=== PATIENT | male | born 1950 | race Caucasian/White ===

== ENCOUNTER 2019-11-14 13:12 | Outpatient (CLI) | payer MEDICARE, OTHER, SELFPAY ==
--- NOTE | 2019-11-14 13:23 | XR_ITS ---
WS: [id number] SHOULDER RIGHT TECHNIQUE: 3 views of the right shoulder CLINICAL INFORMATION: BURSITIS OF RIGHT SHOULDER COMPARISON: None. FINDINGS: Normal acromioclavicular joint. Normal glenohumeral joint. Acromion is normal in appearance. Normal g lenoid. No evidence of acute fracture dislocation. Mild rotator cuff arthropathy XR/XR shoulder RT min 2V* [id number] IMPRESSION: Mild rotator cuff arthropathy.
--- NOTE | 2019-11-14 13:23 | XR_ITS ---
WS: [id number] SHOULDER LEFT TECHNIQUE: 3 views of the left shoulder CLINICAL INFORMATION: BURSITIS OF LEFT SHOULDER COMPARISON: None. FINDINGS: Normal acromioclavicular joint. Normal glenohumeral joint. Acromion is normal in appearance. Normal g lenoid. No evidence of acute fracture dislocation. Mild rotator cuff arthropathy. Chronic left latera l rib fractures with callus formation. XR/XR shoulder LT min 2V* [id number] IMPRESSION: 1. Mild rotator cuff arthropathy. 2. Chronic left lateral rib fractures with callus formation
== END 2019-11-14 13:13 | disposition home or self-care (01) ==
PROVIDERS: Family Provider Nurse Practitioner; PCP Nurse Practitioner; Visit Provider Nurse Practitioner
DX: M75.52 Bursitis of left shoulder (principal); M75.51 Bursitis of right shoulder; M12.811 Other specific arthropathies, not elsewhere classified, right shoulder; M84.48XG Pathological fracture, other site, subsequent encounter for fracture with delayed healing
CPT/HCPCS: 73030

== ENCOUNTER 2019-11-19 15:19 | Outpatient (CLI) | payer MEDICARE, OTHER, SELFPAY ==
--- NOTE | 2019-11-19 15:42 | MR_ITS ---
WS: [id number] MRI RIGHT SHOULDER NONCONTRAST TECHNIQUE: Sagittal T2, coronal T1, T2 and proton density imaging. Axial gradient PDE imaging. CLINICAL INFORMATION: BURSITIS RT SHOULDER COMPARISON: None. FINDINGS: Moderate degenerative arthritis at the AC joint with edema. Small amount of fluid in subacromial/subd eltoid bursa. Downsloping of the acromion with loss of the subacromial space. Tendinopathy supraspina tus. Partial high-grade intrasubstance tear involving the supraspinatus just distal to the musculoten dinous junction. No tendon retraction. Chronic thinning of the supraspinatus distally. Edema within t he supraspinatus and infraspinatus muscle bellies likely inflammatory. Chronic thinning of the infraspinatus with tendinopathy. Chronic appearing intrasubstance tear involv ing the musculotendinous junction. Some intact distal fibers are visualized. No retraction. Teres minor is intact. Normal subscapularis. Normal biceps tendon in the bicipital groove. Glenoid la grayson appears grossly intact. MR/MR shoulder RT wo con* [id number] IMPRESSION: 1. Moderate degenerative arthritis at the AC joint with significant loss of th e subacromial space. Trace subacromial/subdeltoid fluid. 2. High-grade partial tear involving the supraspinatus at the musculotendinous junction with chronic thinning. Chronic thinning of the supraspinatus tendon d istally. No retraction. 3. Chronic intrasubstance tearing with chronic thinning infraspinatus tendon d istally. Intact fibers are seen distally. 4. Normal teres minor and subscapularis. 5. Normal biceps tendon in the bicipital groove.
--- NOTE | 2019-11-19 15:42 | MR_ITS ---
WS: [id number] MRI LEFT SHOULDER NONCONTRAST TECHNIQUE: Sagittal T2, coronal T1, T2 and proton density imaging. Axial gradient PDE imaging. CLINICAL INFORMATION: BURSITIS LEFT SHOULDER COMPARISON: None. FINDINGS: Moderate degenerative arthritis at the AC joint with small amount of edema. Mild downsloping of the a cromion. Slight undersurface acromial spurring. Tendinopathy in the distal supraspinatus. Small intra substance tear at the supraspinatus insertion. Small amount of fluid in subacromial/subdeltoid bursa. Normal infraspinatus. Subscapularis is normal in appearance with normal distal tendon. Normal biceps tendon in the bicipital groove. Degenerative fraying of the glenoid labrum. Tiny SLAP t ear involving the anterior superior glenoid labrum. Labrum otherwise appears intact. Normal biceps la bral anchor. MR/MR shoulder LT wo con* [id number] IMPRESSION: 1. Moderate degenerative arthritis AC joint with a small amount of edema and m ild downsloping of the acromion. Small amount of fluid in the subacromial/subde ltoid bursa consistent with bursitis. 2. Tiny amount of tendinopathy involving the distal supraspinatus with a tiny insertional tear. 3. Rotator cuff is otherwise intact. 4. Normal biceps tendon in the bicipital groove. 5. Suggestion of tiny SLAP tear involving the anterior superior glenoid labrum .
== END 2019-11-19 15:20 | disposition home or self-care (01) ==
LOC: RADSHAW 15:28
PROVIDERS: Family Provider Nurse Practitioner; PCP Nurse Practitioner; Visit Provider Nurse Practitioner
DX: M75.51 Bursitis of right shoulder (principal); M75.52 Bursitis of left shoulder; M19.012 Primary osteoarthritis, left shoulder; M19.011 Primary osteoarthritis, right shoulder
CPT/HCPCS: 73221

== ENCOUNTER 2022-02-09 17:16 | Inpatient (IN) | payer MEDICARE, OTHER, SELFPAY ==
[2022-02-09] VITALS (9 sets, daily range): BP systolic 108–192; BP diastolic 63–94; PULSE 47–100; RESP 15–18; TEMP 36.4–36.9; O2SAT 95–98; BMI 23.0; BMI 23.4
--- NOTE | 2022-02-09 17:32 | ED_ITS ---
HPI - General Adult General: Chief complaint: General Medical Stated complaint: Chest Pain, arm numbness Time Seen by Provider: 02/09/22 17:32 History of Present Illness: Mr Perdomo is a 71-year-old gentleman without chronic medical conditions who presents to the emergency department due to abnormal heart racing episodes and abnormal sensation. He reports a history of similar though had not had 1 in an extended period of time until approximately 2 months ago. He describes episodes that occur at varying times of day and varying circumstances where his heart will race for 30 minutes to an hour. Sometimes these have been associated with a generalized unwell symptom but rarely other specific findings. He has seen a nurse practitioner in [place] and had a heart monitor for 2 weeks as these are becoming more frequent, he did have one episode while wearing this monitor and sent it in for interpretation 2 days ago. He presents today has he had another 1 of these episodes however it was associated with headache, dizzy sensation, asleep or weak sensation in his left leg, a fullness in his left arm and abnormal sensation in his left face. There is no speech disturbance with this or facial droop noted by family. This resolved after 30 minutes or an hour and the pa enrique currently feels at his baseline. Intensity of symptoms when present was moderate to severe. Course has resolved. No other specific changes in health, exacerbating, or alleviating factors identified. He does endorse seeing a box sealing machine operator in [place] approximately 2 years ago for similar episodes though is unclear of exactly the suspected etiology. He denies history of heart disease or lung disease. The only other recent change in health that he noted was flu approximately 6 weeks ago, he was recently started on guaifenesin, doxycycline, and Medrol Dosepak. 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 Transient ischemic attack Surgical History H/O shoulder surgery History of hernia surgery Family History Other No pertinent family history Social History Smoking and tobacco status: never smoked Alcohol intake: current Alcohol intake frequency: holidays/special occasions only Lives independently: Yes Household members: none Marital status: / Physical Exam Const: COMMON NORMALS: patient oriented x3 and alert GENERAL APPEARANCE: cooperative and well developed HENMT: COMMON NORMALS: normocephalic and atraumatic HEAD & SCALP: normoceph alic and atraumatic THROAT: posterior oropharynx normal Eye: COMMON NORMALS: conjunctivae normal CONJUNCTIVA: Yes conjunctivae normal SCLERA: sclerae normal Neck/C-Spine: COMMON NORMALS: supple GENERAL: Yes trachea midline Resp: EFFORT & INSPECTION: Yes able to speak in complete sentences AUSCULTATION: diminished lung sounds Cardio: COMMON NORMALS: regular rhythm RATE: bradycardic RHYTHM: regular rhythm GI: COMMON NORMALS: Soft to palpation PALPATION: Yes Soft to palpation and No Tenderness to palpation present (GI) Extremity: GENERAL: Yes normal exam except as noted and No edema Neuro: COMMON NORMALS: patient oriented x3, CN's II-XII intact bilaterally, moves all extremities, no focal motor deficits and no sensory deficits noted SENSORIUM/ORIENTATION: Yes alert and No Orientation impaired Psych: COMMON NORMALS: mental status grossly normal and Normal thought process present THOUGHT PROCESS: Normal thought process present Course ED course: - Patient was seen and evaluated by me at bedside - Patient placed on cardiac monitors, IV access obtained - Initial evaluation notable for exam as above - Labs and xrays personally interpreted by me. EKG from 1728 and 2000 interpreted by me. Sinus bradycardia with first-degree AV block. - Labs notable for no leukocytosis, normal hemoglobin. No acute metabolic derangement to explain symptoms, BNP minimally elevated though unclear baseline. Delta troponin negative. - Imaging notable for no lobar consolidation or pneumothorax. CT head without acute pathology to explain symptoms. - Upon serial reexamination after treatment the patient was similar - Based on patient history, evaluation, and testing as interpreted the most likely cause of the patient's condition is abnormal neurologic and cardiac event of uncertain etiology. ?Transient arrhythmia such as atrial fibrillation, ?Sick sinus rhythm, ?TIA (less likely) - The results of ED evaluation were discussed with the patient including plan for admission due to requirement for level of care not available if discharged to prevent significant worsening/deterioration. - Admitting service was contacted and Dr Bhatt with the hospitalist service agreed to admit the patient - Patient was admitted without further deterioration or significant events. Note: Click bubbles or prepopulated mcgill in note writing are used for assistance with data collection and billing and are inherently more limited than narrative and other text portions of this note. Please use narrative for additional c linical history and defer to narrative/free test for any case of contradictory information. If information appears in only free text or click bubble it should be considered present or absent as reported. Please contact note physician underwriter for clarifications of clinical information or contradictory information. MDM is a brief summary, contradictory or erroneous seeming information should be clarified and full note should be reviewed. Vital Signs: Vital signs: Vital Signs Temperature 98.2 F 02/11/22 11:41 Pulse Rate 56 L 02/11/22 11:41 Respiratory Rate 18 02/11/22 11:41 Blood Pressure 124/70 02/11/22 11:41 Pulse Oximetry 96 02/11/22 11:41 MDM - General Adult Medical Decision Making 71 yo gentleman without significant past medical history with the exception of transient episodes of racing heart which have become more frequent over the past few weeks. There are associated left-sided neurologic symptoms however on exam these have resolved, NIHSS 0. No clear etiology identified on ED evaluation. Admitted for further evaluation and management. Medical Records I reviewed the patient's medical records. Lab Data I reviewed the patient's lab results. : 02/11/22 04:02 02/11/22 04:02 Radiology Impressions Chest X-Ray 02/09/22 17:52 IMPRESSION: No acute cardiopulmonary abnormality. Head CT 02/09/22 17:52 IMPRESSION: No acute intracranial abnormality. Mild sinusitis. Laboratory Results WBC 10.4 10^3/uL (4.0-10.0) H 02/10/22 03:11 RBC 5.26 10^6/uL (4.1-5.3) 02/10/22 03:11 Hgb 15.0 g/dL (11.7-16.6) 02/10/22 03:11 Hct 47.6 % (42.0-52.0) 02/10/22 03:11 MCV 90.5 fl (80-94) 02/10/22 03:11 MCH 28.5 pg (28.0-34.0) 02/10/22 03:11 MCHC 31.5 g/dL (30.0-36.0) 02/10/22 03:11 RDW 13.9 % (12.1-15.1) 02/10/22 03:11 Plt Count 160 10^3/cmm (130-400) 02/10/22 03:11 MPV 11.4 fL (7.4-10.4) H 02/10/22 03:11 Neut % (Auto) 63.5 % 02/10/22 03:11 Lymph % (Auto) 23.9 % 02/10/22 03:11 Boyd % (Auto) 10.1 % 02/10/22 03:11 Eos % (Auto) 1.6 % 02/10/22 03:11 Baso % (Auto) 0.5 % 02/10/22 03:11 Neut # (Auto) 6.63 10^3/uL (1.8-7.7) 02/10/22 03:11 Lymph # (Auto) 2.5 10^3/uL (0.8-4.8) 02/10/22 03:11 Boyd # (Auto) 1.1 10^3/uL (0.2-0.9) H 02/10/22 03:11 Eos # (Auto) 0.2 10^3/uL (0.0-0.8) 02/10/22 03:11 Baso # (Auto) 0.1 10^3/uL (0.0-0.1) 02/10/22 03:11 Nucleated RBC % (auto) 0 % 02/10/22 03:11 Nucleated RBCs # 0.0 /100WBC 02/10/22 03:11 Sodium 140 mmol/L (136-145) 02/10/22 03:11 Potassium 4.1 mmol/L (3.5-5.1) 02/10/22 03:11 Chloride 108 mmol/L (98-107) H 02/10/22 03:11 Carbon Dioxide 21 mmol/L (22-29) L 02/10/22 03:11 Anion Gap 15.1 (5-19) 02/10/22 03:11 BUN 20 mg/dL (8-23) 02/10/22 03:11 Creatinine 1.0 mg/dL (0.7-1.2) 02/10/22 03:11 GFR Calculation Not Reportable 02/10/22 03:11 Glucose 103 mg/dL (65-115) 02/10/22 03:11 Estimat Average Glucose 117 02/09/22 18:00 Hemoglobin A1c 5.7 % (4.0-6.0) 02/09/22 18:00 Calculated Osmolality 293 mOsm/kg (285-295) 02/10/22 03:11 Calcium 9.7 mg/dL (8.5-10.5) 02/10/22 03:11 Magnesium 1.8 mg/dL (1.7-2.3) 02/09/22 18:00 Total Bilirubin 0.5 mg/dL (0.15-1.2) 02/09/22 18:00 AST 17 U/L (0-40) 02/09/22 18:00 ALT 11 U/L (0-41) 02/09/22 18:00 Alkaline Phosphatase 50 IU/L (40-130) 02/09/22 18:00 Troponin T Baseline 6 ng/L (0-15) 02/09/22 18:00 Troponin T 120 Minute 7.41 ng/L (0-15) 02/09/22 20:00 Delta Troponin T 1.41 ABS# (0-10) 02/09/22 20:00 Troponin T Hi Sens 6Hr 7.85 ng/L (0-15) 02/09/22 23:45 Troponin T Hi Sens 6Hr Delta 1.85 ng/L (0-12) 02/09/22 23:45 NT-Pro-B Natriuret Pep 466 pg/mL (0-125) H 02/09/22 18:00 Total Protein 7.5 g/dL (6.6-8.7) 02/09/22 18:00 Albumin 4.5 g/dL (3.5-5.2) 02/09/22 18:00 Globulin 3.0 g/dL (1.3-4.6) 02/09/22 18:00 Triglycerides 53 mg/dL (0-150) 02/09/22 20:00 Cholesterol 165 mg/dL (0-200) 02/09/22 20:00 LDL Cholesterol, Calc 108 mg/dL (50-129) 02/09/22 20:00 HDL Cholesterol 46 mg/dL (60-100) L 02/09/22 20:00 LDL/HDL Ratio 2.35 RATIO (0.00-3.22) 02/09/22 20:00 Cholesterol/HDL Ratio 3.59 mg/dL (1.0-5.00) 02/09/22 20:00 TSH 0.47 uIU/mL (0.27-4.20) 02/09/22 18:00 Urine Color Yellow (Yellow) 02/09/22 19:16 Urine Appearance Clear (CLEAR) 02/09/22 19:16 Urine pH 8 (5-7) H 02/09/22 19:16 Ur Specific Wheatley 1.010 (1.005-1.030) 02/09/22 19:16 Urine Protein Neg (Negative) 02/09/22 19:16 Urine Glucose (UA) Norm (Normal) 02/09/22 19:16 Urine Ketones Negative (Negative) 02/09/22 19:16 Urine Blood Neg (Negative) 02/09/22 19:16 Urine Nitrate Negative (Negative) 02/09/22 19:16 Urine Bilirubin Neg (Negative) 02/09/22 19:16 Prot Sulfosalicylic Acd Negative (Negative) 02/09/22 19:16 Urine Urobilinogen Neg mg/dL (Negative) 02/09/22 19:16 Ur Leukocyte Esterase Negative (Negative) 02/09/22 19:16 Discharge Plan Discharge Patient Disposition: Placed in Observation Admit Provider: Ra Bhatt Clinical Impression: Arrhythmia, Transient ischemic attack Discharge Diet: Cardiac Discharge Activity: Limit activity as instructed Coding Level of Care Code ED Adjuster And Inspector for Jennifer Chandler
--- NOTE | 2022-02-09 17:52 | CTR_ITS ---
PROCEDURE INFORMATION: Exam: CT Head Without Contrast Exam date and time: 02/09/2022 6:28 PM Age: 71 years old Clinical indication: Patient HX: L sided weakness and dizziness; Additional info: Dizzy, left sided sensory changes TECHNIQUE: Imaging protocol: Computed tomography of the head without contrast. Radiation optimization: All CT scans at this facility use at least one of these dose optimization techniques: automated exposure control; mA and/or kV adjustment per patient size (includes targeted exams where dose is matched to clinical indication); or iterative reconstruction. COMPARISON: US Soft Tissue Head Neck [id number] 02/13/2019 3:42 PM RADIATION DOSE METRICS: Total DLP (mGy-cm): 959.25 FINDINGS: Brain: No hemorrhage or evidence of acute infarction. No mass effect. Cerebral ventricles: No ventriculomegaly. Paranasal sinuses: Mild bilateral ethmoid and sphenoid sinusitis is appreciated Mastoid air cells: Visualized mastoid air cells are well aerated. Bones/joints: Unremarkable. No acute fracture. Soft tissues: Unremarkable. CT/CT head wo con* [id number] IMPRESSION: No acute intracranial abnormality. Mild sinusitis.
--- NOTE | 2022-02-09 17:52 | XRR_ITS ---
PROCEDURE INFORMATION: Exam: XR Chest Exam date and time: 02/09/2022 6:07 PM Age: 71 years old Clinical indication: Chest wall pain; Additional info: Palpitations TECHNIQUE: Imaging protocol: XR of the chest. Views: 1 view. COMPARISON: CR Chest 2 views* [id number] 05/30/2018 8:46 AM FINDINGS: Lungs: Mild scarring is again seen in the right upper lobe. The lungs are otherwise clear. Pleural spaces: No pneumothorax or pleural effusion. A small calcified pleural plaque is again seen atop the right hemidiaphragm. Heart/Mediastinum: Unremarkable. No cardiomegaly. Bones/joints: Multiple old left rib fractures are noted. Right shoulder arthroplasty is also appreciated. No acute fracture is seen. XR/XR chest 1V portable [id number] IMPRESSION: No acute cardiopulmonary abnormality.
[2022-02-09 18:12] LABS: Basophils % 0.1 %; Hematocrit 45.9 % (42.0-52.0); Hemoglobin 15.2 g/dL (11.7-16.6); Lymphocytes # 0.9 10^3/uL (0.8-4.8); Lymphocytes % 12.3 %; Mean Corpuscular HGB Conc 33.1 g/dL (30.0-36.0); Mean Corpuscular Hemoglobin 29.3 pg (28.0-34.0); Mean Corpuscular Volume 88.4 fl (80-94); Mean Platelet Volume 10.6 fL (7.4-10.4); Monocytes # 0.2 10^3/uL (0.2-0.9); Monocytes % 3.2 %; Neutrophils # 5.81 10^3/uL (1.8-7.7); Neutrophils % 84.3 %; Nucleated Red Blood Cells % 0 %; Platelet Count 184 10^3/cmm (130-400); Red Blood Count 5.19 10^6/uL (4.1-5.3); Red Cell Distribution Width 13.6 % (12.1-15.1); White Blood Count 6.9 10^3/uL (4.0-10.0)
[2022-02-09 18:36] LABS: Troponin(5th) Baseline 6 ng/L (0-15)
[2022-02-09 18:39] LABS: Alanine Aminotransferase 11 U/L (0-41); Albumin Level 4.5 g/dL (3.5-5.2); Alkaline Phosphatase 50 IU/L (40-130); Anion Gap 16.1 (5-19); Aspartate Amino Transferase 17 U/L (0-40); Blood Urea Nitrogen 20 mg/dL (8-23); Calcium 9.6 mg/dL (8.5-10.5); Carbon Dioxide 23 mmol/L (22-29); Chloride 103 mmol/L (98-107); Glucose 143 mg/dL (65-115); Magnesium 1.8 mg/dL (1.7-2.3); Osmolality Calculated 291 mOsm/kg (285-295); Potassium 4.1 mmol/L (3.5-5.1); Sodium 138 mmol/L (136-145); Total Bilirubin 0.5 mg/dL (0.15-1.2); Total Protein 7.5 g/dL (6.6-8.7)
[2022-02-09 18:43] LABS: NT Pro B Type Natriuretic Pept 466 pg/mL (0-125); Thyroid Stimulating Hormone 0.47 uIU/mL (0.27-4.20)
[2022-02-09 19:20] LABS: Add Urine Microscopic? NO; Charge for UA Resulting for Rev
[2022-02-09 19:23] LABS: Bilirubin Urine Neg (Negative); Blood Urine Neg (Negative); Glucose Urine UA Norm (Normal); Ketones Urine Negative (Negative); Leukocyte Esterase Urine Negative (Negative); Nitrate Urine Negative (Negative); Protein Urine Neg (Negative); Sulfosalicylic Acid Urine Negative (Negative); Urine Appearance Clear (CLEAR); Urine Color Yellow (Yellow); Urobilinogen Urine Neg (Negative); pH Urine 8 (5-7)
--- NOTE | 2022-02-09 19:53 | ECG_ITS ---
[facility] Test Date: 2022-02-09 Pat Name: Mic Perdomo Department: Room: Gender: Male [employer] Service Attendant: : 1950 Requested By: Renny Wild Order Number: [id number] Lilia MD: Shaye Dixon M.D. Measurements Intervals [place] Rate: 44 P: 57 [place]: 240 QRS: 44 QRSD: 101 T: 52 QT: 458 QTc: 394 Interpretive Statements SINUS BRADYCARDIA WITH FIRST DEGREE AV BLOCK Compared to ECG 10/22/2017 09:08:13 No significant changes Electronically Signed On 02-10-2022 11:17:15 CDT by Shaye Dixon M.D. [id number]
[2022-02-09 20:29] LABS: Troponin 5 2HR 7.41 ng/L (0-15)
[2022-02-09 20:30] LABS: Troponin 5 2HR Delta 1.41 ABS# (0-10)
--- NOTE | 2022-02-09 21:56 | P.HP_ITS ---
Providers/Chief Complaint Admitting Physician: Ra Bhatt Primary Care Provider: Yesi Altamirano APN Chief Complaint: Chest Pain, arm numbness History of Present Illness Pleasant 71-year-old gentleman with history of occasional racing heart rate/palpitations, reports previously was described to him during an ER visit by a doctor that he may have had very slow heart rate with compensatory tachycardia, recently also about 4 weeks ago had influenza, subsequently has not recovered very well, and had gone back to his primary provider, recently prescribed doxycycline, Medrol Dosepak, mephenesin due to some ongoing symptoms, recently with sore throat as well as some chest congestion. Just on Sunday he had also completed 2 weeks cardiac monitoring due to episode of tachycardia. He states that he had one episode that had woken him up from sleep around midnight which should have been caught on the monitor. He does state that since Sunday he has had 2 more episodes of the tachycardia since returning the cardiac cath lab radiology technologist. The monitor was through his primary provider's office. He presented to ER following neurological symptoms. He states around this afternoon not long before his presentation he started he had experienced his heart racing, similarly to the prior episodes, but this time what was new is he was experiencing vertigo, with everything spinning around him to one side horizontally. He states that he had got up to put a log in the furnace, but felt persistent vertigo, so went to bed to lie down. There he also experienced mild headache on the left side of his head. Subsequently also experienced numbness in the left leg, also felt that left side of his face felt heavy, and to ER physician also reported some heaviness of the left arm. He had previously had episodes of tachycardia/palpitation before, but never associated with strokelike symptoms. He denies any history of migraine or hemiplegic migraine. By the time he arrived in ER all the symptoms had resolved. CT of the head without acute abnormality. He is noted with resting bradycardia in the high 40s. Maintaining blood pressures. Orthostatics negative. EKG with sinus bradycardia, first-degree AV block. Baseline and 2-hour troponin normal. CBC, CMP unremarkable apart from elevation of NT proBNP at 466. TSH normal. UA unremarkable. Review of Systems Const: Denies: fever(s), chills, body aches or malaise Eyes: Denies: change in vision, eye discomfort or eye redness ENMT: Denies: throat pain, oral sores or ear or mastoid pain Card: Denies: chest pain, edema, pre-syncope or dyspnea on exertion Resp: Denies: dyspnea, productive cough, change in phlegm color or hemoptysis GI: Denies: abdominal pain, nausea, vomiting, diarrhea, constipation, he matochezia or melena : Denies: flank pain, difficulty urinating, urinary frequency or hematuria Musc: Denies: back pain, joint swelling or joint redness Skin/Breast: Denies: rash or new lesions Neuro: Reports: headache(s), numbness in extremities, weakness in extremities and vertigo; Denies: confusion or seizure-like activity Endo: Denies: polyuria or polydipsia Jaden/Lymph: Denies: easy bleeding or tender lymph nodes All/Imm: Denies: urticaria or tongue swelling Medications/Allergies Home Medications Medication Instructions Recorded Confirmed Last Taken Type doxycycline hyclate 100 mg capsule 100 mg PO DAILY 02/09/22 02/09/22 02/09/22 History guaifenesin 600 mg tablet, 600 mg PO BID 02/09/22 02/09/22 02/09/22 History extended release 12 hr (Mucinex) methylprednisolone 4 mg tablets in 0 mg PO PER PKG DIR 02/09/22 02/09/22 02/09/22 History a dose pack (Medrol (Prince)) wgcjukahheam-bvqjajld-nkjhf acid 1 cap PO DAILY 02/09/22 02/09/22 02/09/22 History 400 mcg-vitamin K 40 mcg capsule (Multi For Him (no iron)) Allergies Allergy/AdvReac Type Severity Reaction Status Date / Time No Known Allergies Allergy Verified 02/09/22 18:17 PFSH Acute PFSH: Medical History Bradycardia Influenza Paroxysmal tachycardia 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 Surgical History H/O shoulder surgery History of hernia surgery Family History (Updated 02/09/22 @ 22:29 by Ra Bhatt MD) Other No pertinent family history Social History (Updated 02/09/22 @ 22:07 by Ra Bhatt MD) Smoking and tobacco status: never smoked Alcohol intake: current Alcohol intake frequency: holidays/special occasions only Substance/Drug Use: never Lives independently: Yes Household members: none Marital status: / Vitals/I&O/Wt Last Vital Signs Temp 97.5 F L 02/09/22 17:25 Pulse 47 L 02/09/22 19:48 Resp 18 02/09/22 19:48 BP 141/69 02/09/22 19:48 Pulse Ox 96 02/09/22 19:48 Weight last 48 hrs Weight 77.111 kg Physical Exam Narrative: Accompanied by 2 sons Const: COMMON NORMALS: alert GENERAL APPEARANCE: cooperative ORIENTATION/CONSCIOUSNESS: Yes awake HENMT: COMMON NORMALS: normocephalic, EAC's normal, Normal external nose present and moist oral mucous membranes HEAD & SCALP: normocephalic NOSE: Normal external nose present EXTERNAL AUDITORY CANAL: EAC's normal Neck/C-Spine: COMMON NORMALS: no meningeal signs Chest: CHEST: Yes Symmetrical chest wall rise Resp: COMMON NORMALS: clear to auscultation bilaterally AUSCULTATION: clear to auscultation bilaterally Cardio: COMMON NORMALS: regular rate, regular rhythm and No murmurs present (Cardio) RATE: regular rate and bradycardic RHYTHM: regular rhythm GI: COMMON NORMALS: Normal to inspection, nondistended, normoactive bowel sounds present, Soft to palpation and non-tender PALPATION: Yes Soft to palpation Extremity: COMMON NORMALS: no pedal edema OTHER: Glove on the right-hand Neuro: COMMON NORMALS: moves all extremities SENSORIUM/ORIENTATION: Yes alert MENINGEAL SIGNS: Yes no meningeal signs COORDINATION/BALANCE: [id number]-[id number] test normal (Sluggish, intention tremor) and etos-xq-qkii test normal SPEECH: speech normal SENSORY EXAM: Yes extremities (Symmetrical) and Normal double simultaneous stimulation for sensation MOTOR EXAM: 5/5 motor strength present throughout, Pronator motor function not present and Other motor observations present (Mild intention tremor) OTHER: Keenly awake alert, following directions well. Tracking without issues. Visual mcgill full to confrontation. Psych: COMMON NORMALS: mental status grossly normal Skin: COMMON NORMALS: no wounds RASHES: no rashes Data : 02/09/22 18:00 02/09/22 18:00 A&P Assessment and plan (1) Transient ischemic attack: With reported numbness, mild weakness/heaviness of LLE, then left-sided facial heaviness subjectively, left upper extremity mild weakness. Symptoms resolved. Discussed with him and his son's number of different possible etiologies. Suspect TIA given resolution of symptoms. CT head was unremarkable. He does have bradycardia, and has had previous episodes of paroxysmal tachycardia. Discussed consideration of possible severe bradycardia as etiology, with hypoperfusion especially if there is carotid disease, will monitor on telemetry, assess carotid duplex. With episodes of proximal tachycardia, discussed also possibility of atrial flutter or fibrillation, elevating risk of stroke if these were present. He had just completed event monitor on Sunday. States one event should have been caught on the monitor. Subsequently has had 2 events since taking of the monitor. States events have been getting more frequent. Monitor on telemetry. Will request records from cardiac event monitor, hopefully the tachycardia may be identified. If not, may need to extend monitor further. He does appear to have also hypertension, without history of hypertension. 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 Monitor blood pressures. For now we will hold off on treatment, but may need to initiate on some treatment to optimize long-term in case persistent hypertension. Check lipid profile. Assess TTE. Blood glucose appears elevated 143 without history of diabetes. Possibly related to steroid. Will check A1c. Aspirin, statin. Less likely, possible hemiplegic migraine, reports headache on the left side associated with the symptoms today. Denies prior history of migraine or hemiplegic migraine. Discussed with him in the future if having focal neurologic symptoms to still proceed to ER [facility] for evaluation for stroke. He appears to also report a wood-burning stove at home, will check ABG for CO. Status: Acute (2) Paroxysmal tachycardia: As above, monitor on telemetry. Please attempt to obtain records from primary provider regarding recently completed event monitor. He states one episode of tachycardia should have been caught on the monitor. It woke him up from sleep at midnight. States since then has had 2 more episodes of tachycardia/palpitations since taking off the monitor on Sunday. In case of possible atrial fibrillation/flutter, may benefit from additional stroke risk reduction measures, consideration of anticoagulation given age, hypertension. In case nondiagnostic, may need to consider extending cardiac monitoring window. Status: Acute (3) Bradycardia: Noted sinus bradycardia, first-degree AV block. Monitor on telemetry. Obtain records from cardiac cath lab radiology technologist. TSH is normal. Electrolytes okay. Not on bailey blockers. Status: Acute (4) Headache: Denies history of migraine, but reports today headache after symptoms on the left side. Tylenol as needed. We will also check ABG. Saturations 94% on room air. Will check for CO as he reports wood-burning stove at home. Please confirm with him that he has a CO detector at home. Status: Acute (5) HTN (hypertension): No prior history of hypertension. Appears may have hypertension, blood pressures noted elevated. This may be transient from distress from his symptoms. For now we will monitor blood pressures. In case persistent elevation, consider starting on therapy for long-term optimization of control. Should monitor blood pressures at home. Status: Acute (6) Bronchitis: States that influenza 4 weeks ago, states that recovered poorly from it, states that followed up with his primary provider, and had been prescribed additional course of Solu-Medrol, doxycycline, Mucinex. Continue. Status: Acute Attestations Medical Necessity Statement*: Place in observation for additional assessment of management of TIA, bradycardia, paroxysmal tachycardia. Coding Level of Care Code Acute Supervisor Cigar Making Machine for Jennifer Fwd Exam Comprehensive Diagnoses Transient ischemic attack G45.9 Paroxysmal tachycardia I47.9 Bradycardia R00.1 Headache R51.9 HTN (hypertension) I10 Bronchitis J40
--- NOTE | 2022-02-09 22:10 | PC.NURSE ---
I reported low pulse 50 to nurse
[2022-02-09 22:25] LABS: Chol HDL Ratio 3.59 mg/dL (1.0-5.00); Cholesterol 165 mg/dL (0-200); HDL Cholesterol 46 mg/dL (60-100); LDL Cholesterol Calculated 108 mg/dL (50-129); LDL HDL Ratio 2.35 RATIO (0.00-3.22); Triglycerides 53 mg/dL (0-150)
[2022-02-09] MEDS: atorvastatin 40 mg Tablet PO (22:25)
[2022-02-09] MEDS: aspirin 325 mg Tablet PO (22:25)
[2022-02-09 23:12] LABS: Estmated Average Glucose 117; Hemoglobin A1C 5.7 % (4.0-6.0)
--- NOTE | 2022-02-09 23:53 | ECG_ITS ---
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 Measurements Intervals [place] Rate: 40 P: 70 MO: 236 QRS: 40 QRSD: 116 T: 52 QT: 467 QTc: 382 Interpretive Statements SINUS BRADYCARDIA WITH FIRST DEGREE AV BLOCK MODERATE INTRAVENTRICULAR CONDUCTION DELAY [110+ ms QRS DURATION] CRITICAL TEST RESULT Compared to ECG 02/09/2022 20:01:47 Intraventricular conduction delay now present Electronically Signed On 02-10-2022 13:56:54 CDT by Jamie Brito M.D. [id number]
--- NOTE | 2022-02-09 23:54 | PC.NURSE ---
i reported low pulse 48 to nurse
[2022-02-10] VITALS (9 sets, daily range): BP systolic 121–159; BP diastolic 63–73; PULSE 40–58; RESP 15–20; TEMP 36.4–36.9; O2SAT 96–100
[2022-02-10 00:16] LABS: Troponin 5 6HR 7.85 ng/L (0-15)
[2022-02-10 00:18] LABS: Troponin 5 6HR Delta 1.85 ng/L (0-12)
--- NOTE | 2022-02-10 01:49 | USCV_ITS ---
Carotid Duplex Mic Perdomo Age: 71 Gender: M : 1950 Exam Date: 02/10/2022 02:34 Ordering Phys: Ra Bhatt MD Technologist: PEREZ [place] [facility] [place]: TIA Risk Factors: Unknown Previous Vascular Surgery: Unknown Right Brachial BP: / Left Brachial BP: / Right Left Velocity (cm/s) Spectral Plaque Velocity (cm/s) Spectral Plaque Syst/Diast Broadening Syst/Diast Broadening 62.80/ 11.00 Prox CCA 63.10 / 13.10 79.40/ 12.10 Mid CCA 60.50 / 13.10 50.70/ 9.90 Distal CCA 63.10 / 10.50 47.20/ 12.00 Prox ICA 60.30 / 16.40 51.20/ 15.30 Mid ICA 59.40 / 11.00 46.50/ 13.30 Distal ICA 45.70 / 11.00 53.20 ECA 74.90 0.64 ICA/CCA 0.96 Antegrade Vertebral Antegrade 17.80/ 3.30 cm/s 35.60/ 5.50 cm/s Tri Subclavian Tri 121.3 53.00 0 FINDINGS Mild to moderate homogeneous plaque at the left bifurcation Minimal plaque at the right bifurcation. Minimal intimal thickening in the common carotid and internal carotid arteries bilaterally. Antegrade flow in the vertebral arteries bilaterally. Normal Doppler flow velocities in the external, vertebral and subclavian arteries bilaterally CONCLUSIONS Mild to moderate homogeneous plaque at the left bifurcation, consistent with less than 50% stenosis Minimal plaque at the right bifurcation. No significant stenosis in the above-mentioned extracranial vessels, based on the current finding Dr Jamie Brito MD [facility] (Electronically Signed) Final Date: 10 February 2022 08:45 S
--- NOTE | 2022-02-10 01:49 | USCV_ITS ---
Transthoracic Echo Mic Perdomo Age: 71 Gender: M : 1950 Exam Date: 02/10/2022 01:58 Ordering Phys: Ra Bhatt MD Technologist: PEREZ [place] [facility] [place]: TIA/Bradycardia BP: / HR: 42 Rhythm: Sinus Technical Quality: Adequate MEASUREMENTS (Male / Female) Normal Values 2D ECHO LV Diastolic Diameter PLAX 4.3 cm 4.2 - 5.9 / 3.9 - 5.3 cm LV Systolic Diameter PLAX 2.7 cm IVS Diastolic Thickness 1.0 cm 0.6 - 1.0 / 0.6 - 0.9 cm IVS Systolic Thickness 2.2 cm LVPW Diastolic Thickness 1.8 cm 0.6 - 1.0 / 0.6 - 0.9 cm LVPW Systolic Thickness 1.9 cm LVOT Diameter 2.4 cm LV Ejection Fraction 2D Teich 69.0 % LV Ejection Fraction MOD 2C 58.2 % LV Ejection Fraction 2C AL 58.5 % LA Diameter 3.0 cm LA Width 3.3 cm LA Height 4.9 cm RA Width 4.3 cm RA Height 5.4 cm Aorta at Sinotubular Diameter 2.6 cm M-MODE Aortic Annulus Diameter 3.0 cm LA Ao Ratio MM 1.3 MV E Point Septal Separation 1.3 cm DOPPLER AV Peak Velocity 114.3 cm/s LVOT Peak Velocity 95.0 cm/s AV Area Cont Eq vti 3.4 cm squared AV Area Cont Eq pk 3.7 cm squared MV Peak Velocity 89.0 cm/s MV Area PHT 3.7 cm squared Mitral E to A Ratio 2.1 MV E' Velocity 49.5 cm/s Mitral E to MV E' Ratio 7.4 Mitral E to LV E' Lateral Ratio 7.0 Mitral E to LV E' Septal Ratio 7.8 TR Peak Velocity 180.6 cm/s TR Peak Gradient 13.0 mmHg TR Mean Velocity 130.7 cm/s TR Mean Gradient 8.6 mmHg TR Velocity Time Integral 63.5 cm Right Atrial Pressure 5.0 mmHg Pulmonary Artery Systolic Pressu 18.0 mmHg PV Peak Velocity 64.0 cm/s RV Acceleration Time 0.1 s RV Ejection Time 0.4 s RV AcT/ET 0.3 FINDINGS Left Ventricle Normal left ventricular size and systolic function, EF 61 %. No regional wall motion abnormalities. Mild left ventricular hypertrophy. No regional wall motion abnormalities. Right Ventricle The right ventricle is normal in size and function. Right Atrium Mildly increased right atrial size. Left Atrium The left atrium is normal in size. Mitral Valve Trace mitral valve regurgitation. Aortic Valve Thickened aortic valve. Trace aortic valve regurgitation. Tricuspid Valve Mild tricuspid valve regurgitation. Pulmonic Valve No gross abnormalities noted Pericardium No pericardial effusion. Aorta Normal ascending aorta dimension. CONCLUSIONS Normal left ventricular size and systolic function, EF 61 %. No regional wall motion abnormalities. Mild left ventricular hypertrophy. No regional wall motion abnormalities. Mildly increased right atrial size. Mild tricuspid valve regurgitation. Thickened aortic valve. Trace aortic valve regurgitation. Trace mitral valve regurgitation. There is no pericardial effusion. There are no intracardiac masses. No previous study is available for comparison. Dr Jamie Brito MD [facility] (Electronically Signed) Final Date: 10 February 2022 08:55 S
[2022-02-10 03:46] LABS: Basophils # 0.1 10^3/uL (0.0-0.1); Basophils % 0.5 %; Eosinophils # 0.2 10^3/uL (0.0-0.8); Eosinophils % 1.6 %; Hematocrit 47.6 % (42.0-52.0); Lymphocytes # 2.5 10^3/uL (0.8-4.8); Lymphocytes % 23.9 %; Mean Corpuscular HGB Conc 31.5 g/dL (30.0-36.0); Mean Corpuscular Hemoglobin 28.5 pg (28.0-34.0); Mean Corpuscular Volume 90.5 fl (80-94); Mean Platelet Volume 11.4 fL (7.4-10.4); Monocytes # 1.1 10^3/uL (0.2-0.9); Monocytes % 10.1 %; Neutrophils # 6.63 10^3/uL (1.8-7.7); Neutrophils % 63.5 %; Nucleated Red Blood Cells % 0 %; Platelet Count 160 10^3/cmm (130-400); Red Blood Count 5.26 10^6/uL (4.1-5.3); Red Cell Distribution Width 13.9 % (12.1-15.1); White Blood Count 10.4 10^3/uL (4.0-10.0)
[2022-02-10 04:09] LABS: Blood Urea Nitrogen 20 mg/dL (8-23); Calcium 9.7 mg/dL (8.5-10.5); Carbon Dioxide 21 mmol/L (22-29); Chloride 108 mmol/L (98-107); Glucose 103 mg/dL (65-115); Osmolality Calculated 293 mOsm/kg (285-295); Sodium 140 mmol/L (136-145)
[2022-02-10 04:11] LABS: Anion Gap 15.1 (5-19); Potassium 4.1 mmol/L (3.5-5.1)
--- NOTE | 2022-02-10 04:20 | PC.NURSE ---
i reported low pulse 40 to nurse
--- NOTE | 2022-02-10 07:40 | ECG_ITS ---
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 Measurements Intervals [place] Rate: 49 P: 27 MT: 227 QRS: 27 QRSD: 89 T: 33 QT: 434 QTc: 395 Interpretive Statements SINUS BRADYCARDIA WITH FIRST DEGREE AV BLOCK Compared to ECG 02/10/2022 02:11:28 Intraventricular conduction delay no longer present Electronically Signed On 02-10-2022 13:57:49 CDT by Jamie Brito M.D. [id number]
[2022-02-10] MEDS: NON-FORMULARY MEDICATION (Methylprednisolone [Medrol (Pak)] 4 mg Tablets,Dose Pack) 1 EACH PO (09:35)
[2022-02-10] MEDS: aspirin 325 mg Tablet PO (09:37)
--- NOTE | 2022-02-10 10:40 | PC.CHAP ---
Pastoral Care Encounter/Spiritual Assessment Type of Contact [] Declined maitre d visit [] Patient/Family/Request visit [] Outpatient visit [] Follow-up visit [] Physician referral [] Code/Alert [x] Routine visit [] Staff referral [] Actively dying [] Patient sleeping [] Family support [] [] Out of room [] Palliative care [] [] Receiving care in room [] Pre-surgical visit [] Trauma [] Long length of stay [] ICU visit [] Other: Relational/Emotional Strength [x] Patient feels connected with others/family/visitors/staff [] Distress [] Loneliness/isolation [] Abandonment Spirituality of Patient [x] Person of Marge [x] Attends Religious of their Marge [x] Believes in Prayer [] Reads Bible or Faith materials [] There are Spiritual issues to be addressed Molding Plasterer Interventions [xx] Prayer [x Active listening [x] Non-anxious presence [x] Spiritual/emotional support [] Crisis/trauma care [] Spiritual counseling [] Bereavement support [] Provided bereavement packet [] Provided Bible/devotional materials [] Provided toy/stuffed animal, coloring book to patient or family member [] Provided Communion [] Anointing/[place] [] Salvation [x] Completed spiritual assessment [] Other: Impact on Illness or Injury [] Angry [] Fearful [] Anxious [] Often cries [] Exhaustion [] Unable to work [] Unable to attend mu-ism [] Unable to walk/stand [] Unable to read [] Unable to drive [] Unable to eat/drink [] Unable to sleep [] Unable to be with family [] Patient intubated [] Other: Summary Time spent with patient 10 min
--- NOTE | 2022-02-10 11:54 | PM.PN ---
Subjective Subjective: Intermittent block noted on EKG, requested Dr. Mcclain to evaluate the patient for sick sinus syndrome Patient is hemodynamically stable, telemetry reviewed, concern for 2-1 block, will follow up with cardiology Vitals/I&O/Wt Last Vital Signs Temp 97.6 F 02/10/22 07:50 Pulse 41 L 02/10/22 07:50 Resp 16 02/10/22 07:50 BP 140/72 02/10/22 07:50 Pulse Ox 97 02/10/22 07:50 02/09/22 02/10/22 02/10/22 22:59 06:59 14:59 Intake Total 120 / 120 120 / 120 Output Total 100 / 100 Balance 20 / 20 120 / 120 Weight last 48 hrs Weight 78.471 kg Weight 77.111 kg Physical Exam Narrative: Patient is hemodynamically stable He was eating breakfast Very pleasant cooperative S1, S2 sinus bradycardia No murmur appreciated Nonfocal neuro exam Abdomen soft Saturating well on room air Euvolemic Patient is keeping his hands in gloves Has right hand ulnar nerve damage Data : 02/10/22 03:11 02/10/22 03:11 A&P Assessment and plan (1) HTN (hypertension): Status: Acute (2) Bradycardia: Status: Acute (3) Paroxysmal tachycardia: Status: Acute Plan Sick sinus syndrome Palpitations, symptomatic Bradycardia Dr. Mcclain consulted Patient is not on AV bailey blocking agent TSH normal Intermittent bundle branch block, concern for 2-1 AV block, telemetry reviewed Magnesium 1.8, potassium 4.1 At the time my evaluation patient was not symptomatic Continue cardiac diet We will keep him n.p.o. after midnight in case he would need any further pacemaker evaluation He is hemodynamically stable Concern for TIA: No active neurological symptoms I do believe his symptoms are related to bradycardia, CT head negative, We will follow up with echo and carotid Doppler Continue aspirin and statins Bronchitis: Continue Medrol pack Patient is full code Attestations Medical Necessity Statement*: Continue hospitalization for concern of sick sinus syndrome Time Spent in Patient Care: 40mins Coding Level of Care Code Acute Electrical Estimator for Chg Fwd Diagnoses HTN (hypertension) I10 Bradycardia R00.1 Paroxysmal tachycardia I47.9
--- NOTE | 2022-02-10 12:55 | PM.CONSULT ---
Providers/Reason For Consult Consulting Physician/Specialty*: Cardiovascular medicine Reason for Consult*: Dizziness and lightheadedness Requesting Physician: hospitalist Attending Physician: Ra Bhatt Primary Care Provider: Yesi Altamirano APN History of Present Illness History of Present Illness Mic Perdomo is a 71 year old male who has been having after he was simply sitting on his couch watching television and looking out the window. He suddenly noticed that things outside that he was watching were moving around. He then got up and felt dizzy and as though the room was spinning. He went to bed. At that point he feels his heart rate going up. He then became very anxious and noticed that his left leg was numb his left arm felt like it was swelling in the left side of his face was numb. He called his son who came and recommended that he come to the emergency room. They called 911 but by the time the first responders arrived the symptoms had completely resolved on their own. He has had multiple episodes like this over the last 5 years. He states that he has had more frequent episodes in the last 6 weeks. Because of this he has had what sounds like an event monitor placed at his primary care physician's office and [place]. This was taken off the other day. We called the office and it is not available for evaluation at this time. He did tell me that he had 1 of these episodes while the monitor was on. Since he has been here he is had sinus bradycardia without any evidence of high degree AV block. The in flight refueling craftsman was concerned that there might be 1 area that showed 2-1 AV block but this is not the case. One strip reveals what looks like a U wave but it is not in sync with the P waves and then there is a significant amount of baseline artifact after this. The other strips reveal sinus rhythm with no block. His heart rate runs in the 40s. His son, Mic Castillo is in the room and participated in the discussion. Medications/Allergies Home Medications Medication Instructions Recorded Confirmed Last Taken Type doxycycline hyclate 100 mg capsule 100 mg PO DAILY 02/09/22 02/09/22 02/09/22 History guaifenesin 600 mg tablet, 600 mg PO BID 02/09/22 02/09/22 02/09/22 History extended release 12 hr (Mucinex) methylprednisolone 4 mg tablets in 0 mg PO PER PKG DIR 02/09/22 02/09/22 02/09/22 History a dose pack (Medrol (Prince)) jeeiwyujzmar-chrogubc-aidas acid 1 cap PO DAILY 02/09/22 02/09/22 02/09/22 History 400 mcg-vitamin K 40 mcg capsule (Multi For Him (no iron)) Allergies Allergy/AdvReac Type Severity Reaction Status Date / Time No Known Allergies Allergy Verified 02/09/22 18:17 Current Medications Generic Name Dose Route Start Last Admin Trade Name Dewey PRN Reason Stop Dose Admin Aspirin 325 mg 02/09/22 22:05 02/10/22 09:37 Aspirin 325 Mg Tablet PO 325 mg DAILY GHASSAN Administration Atorvastatin Calcium 40 mg 02/09/22 22:30 02/09/22 22:25 Atorvastatin 40 Mg Tablet PO 40 mg BEDTIME GHASSAN Administration Non-Formulary Medication 1 tab 02/10/22 06:00 02/10/22 09:35 Methylprednisolone [Medrol (Prince)] PO 1 tab PER PKG DIR GHASSAN Administration Non-Formulary- 1 each 02/10/22 09:00 02/10/22 09:35 Mucinex 1200mg PO 1 each BID GHASSAN Administration Non-Formulary: 1 each 02/10/22 09:00 02/10/22 09:37 Doxycycline 100mg PO 1 each Capsule DAILY GHASSAN Administration PFSH Acute PFSH: Medical History (Updated 02/10/22 @ 13:05 by Daryn Mcclain MD) Bradycardia Dizziness Influenza Paroxysmal tachycardia 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 Surgical History H/O shoulder surgery History of hernia surgery Family History (Updated 02/09/22 @ 22:29 by Ra Bhatt MD) Other No pertinent family history Social History (Updated 02/09/22 @ 22:07 by Ra Bhatt MD) Smoking and tobacco status: never smoked Alcohol intake: current Alcohol intake frequency: holidays/special occasions only Substance/Drug Use: never Lives independently: Yes Household members: none Marital status: / Vitals/I&O/Wt Last Vital Signs Temp 97.6 F 02/10/22 12:00 Pulse 50 L 02/10/22 12:00 Resp 16 02/10/22 12:00 BP 142/70 02/10/22 12:00 Pulse Ox 97 02/10/22 12:00 02/09/22 02/10/22 02/10/22 22:59 06:59 14:59 Intake Total 120 / 120 120 / 120 Output Total 100 / 100 Balance 20 / 20 120 / 120 Weight last 48 hrs Weight 173 lb Weight 170 lb Physical Exam Narrative: GENERAL: In general he looks and feels well HEENT: Exam within normal limits. NECK: Supple without jugular vein distention. The carotid upstroke is normal without bruits. BACK: Exam normal. LUNGS: Clear. HEART: Regular rate and rhythm. ABDOMEN: Benign without organomegaly or tenderness. EXTREMITIES: No edema. NEUROLOGIC: Exam normal. SKIN: Unremarkable. Data : 02/10/22 03:11 02/10/22 03:11 A&P Assessment and plan (1) HTN (hypertension): Status: Acute (2) Dizziness: Status: Acute (3) Vertigo: Status: Acute Plan I honestly do not think this is cardiac. I do not think he has any high degree IV AV block. I will get an echo to be sure he does not have any underlying structural heart disease. These do not sound like cardiac events. I would monitor him 1 more night and if he is okay sending home tomorrow. He seems anxious to get out of the hospital. The alfredo will be to evaluate that outpatient monitor because he said he had one episode while the monitor was on. I think if he is okay tomorrow he can go home and be followed up as an outpatient. Coding Level of Care Code New Pt Acute Geography Professor for Chg Fwd Patient Type New History Detailed Exam Detailed Medical Decision Making Moderate Complexity Diagnoses HTN (hypertension) I10 Dizziness R42 Vertigo R42 Time Spent (min) 40
[2022-02-10] MEDS: acetaminophen 325 mg Tablet 650 MG PO (17:41)
[2022-02-10] MEDS: magnesium oxide 400 mg tablet PO (17:42)
[2022-02-10] MEDS: atorvastatin 40 mg Tablet PO (20:44)
[2022-02-11 04:00] VITALS: BP 121/64; PULSE 46; RESP 20; TEMP 36.3; O2SAT 98
[2022-02-11 05:04] LABS: Basophils % 0.2 %; Eosinophils # 0.2 10^3/uL (0.0-0.8); Eosinophils % 2.2 %; Hematocrit 45.3 % (42.0-52.0); Hemoglobin 14.7 g/dL (11.7-16.6); Lymphocytes # 2.5 10^3/uL (0.8-4.8); Lymphocytes % 25.3 %; Mean Corpuscular HGB Conc 32.5 g/dL (30.0-36.0); Mean Corpuscular Hemoglobin 28.8 pg (28.0-34.0); Mean Corpuscular Volume 88.8 fl (80-94); Mean Platelet Volume 11.3 fL (7.4-10.4); Monocytes # 0.8 10^3/uL (0.2-0.9); Monocytes % 8.5 %; Neutrophils # 6.24 10^3/uL (1.8-7.7); Neutrophils % 63.6 %; Nucleated Red Blood Cells % 0 %; Platelet Count 189 10^3/cmm (130-400); Red Cell Distribution Width 13.8 % (12.1-15.1); White Blood Count 9.8 10^3/uL (4.0-10.0)
[2022-02-11 05:13] VITALS: PULSE 42
[2022-02-11 05:22] LABS: Blood Urea Nitrogen 21 mg/dL (8-23); Calcium 9.2 mg/dL (8.5-10.5); Carbon Dioxide 25 mmol/L (22-29); Chloride 102 mmol/L (98-107); Glucose 93 mg/dL (65-115); Osmolality Calculated 283 mOsm/kg (285-295); Sodium 135 mmol/L (136-145)
[2022-02-11 05:26] LABS: Anion Gap 12.3 (5-19); Potassium 4.3 mmol/L (3.5-5.1)
[2022-02-11 07:08] VITALS: BP 133/65; PULSE 58; RESP 18; TEMP 36.7; O2SAT 97
--- NOTE | 2022-02-11 07:30 | PM.PN ---
Subjective Subjective: Mic has had an uneventful night. He has had no high degree AV block. The lowest heart rate was 39 this morning at about 4:00 while he was sleeping. His average heart rate is around 47 bpm. No symptoms. No further episodes. Vitals/I&O/Wt Last Vital Signs Temp 98.1 F 02/11/22 07:08 Pulse 58 L 02/11/22 07:08 Resp 18 02/11/22 07:08 BP 133/65 02/11/22 07:08 Pulse Ox 97 02/11/22 07:08 02/10/22 02/11/22 02/11/22 22:59 06:59 14:59 Intake Total 600 / 960 60 / 1020 Balance 600 / 960 60 / 1020 Weight last 48 hrs Weight 173 lb Weight 170 lb Physical Exam Narrative: GENERAL: In general he looks and feels well HEENT: Exam within normal limits. NECK: Supple without jugular vein distention. The carotid upstroke is normal without bruits. BACK: Exam normal. LUNGS: Clear. HEART: Regular rate and rhythm. ABDOMEN: Benign without organomegaly or tenderness. EXTREMITIES: No edema. NEUROLOGIC: Exam normal. SKIN: Unremarkable. Data : 02/11/22 04:02 02/11/22 04:02 A&P Assessment and plan (1) Vertigo: Status: Acute (2) Dizziness: Status: Acute (3) HTN (hypertension): Status: Acute (4) Bradycardia: Status: Acute Plan There is no high degree AV block. There are no tacky arrhythmias. I am still not convinced these episodes are cardiac. The critical piece will be the monitor that he had as an outpatient. He tells me that he had one serious episode while the monitor was in place. We will have to try to track that down next week. In the meantime, he can go home. Avoid all AV bailey blockers. Attestations Medical Necessity Statement*: Patient may be discharged today. Coding Level of Care Code Established Pt Acute Customer Service Coordinator for Chg Fwd Patient Type Established History Expanded Problem Focused Exam Expanded Problem Focused Medical Decision Making Moderate Complexity Diagnoses Vertigo R42 Dizziness R42 HTN (hypertension) I10 Bradycardia R00.1 Time Spent (min) 20
--- NOTE | 2022-02-11 07:57 | PC.NURSE ---
Bedside report from Kari RN at this time.
[2022-02-11] MEDS: aspirin 325 mg Tablet PO (08:42)
[2022-02-11] MEDS: magnesium oxide 400 mg tablet PO (08:42)
--- NOTE | 2022-02-11 08:51 | PC.NURSE ---
Patient does not have an order for the Methylprednisolone but is insistent that he must take it because it is a tapering dose. Patient was given it yesterday. Patient given this medication at his request.
--- NOTE | 2022-02-11 09:33 | PC.NURSE ---
Patient is stating, When am I going to get to go home. I have seen the doctor already and he said I could go home. Explained to the patient that he has only seen the ceramic capacitor processor and still needs the hospitalist to discharge him.
--- NOTE | 2022-02-11 11:06 | P.DS_ITS ---
Discharge Providers Date of Admission: 02/10/22 18:35 Date of Discharge: February 11, 2022 Attending Provider at Admission: Ra Bhatt Attending Provider at Discharge: Gayathri Mccloud MD Primary Care Provider: Yesi Altamirano APN Diagnoses at Discharge Discharge Diagnosis (1) Vertigo: Status: Acute (2) Dizziness: Status: Acute (3) HTN (hypertension): Status: Acute (4) Bradycardia: Status: Acute Reason for Visit Reason for Visit: Chest Pain, arm numbness Hospital Course Hospital Course This is admitting note of Dr. Bhatt pleasant 71-year-old gentleman with history of occasional racing heart rate/palpitations, reports previously was described to him during an ER visit by a doctor that he may have had very slow heart rate with compensatory tachycardia, recently also about 4 weeks ago had influenza, subsequently has not recovered very well, and had gone back to his primary provider, recently prescribed doxycycline, Medrol Dosepak, mephenesin due to some ongoing symptoms, recently with sore throat as well as some chest congestion. Just on Sunday he had also completed 2 weeks cardiac monitoring due to episode of tachycardia.? He states that he had one episode that had woken him up from sleep around midnight which should have been caught on the monitor.? He does state that since Sunday he has had 2 more episodes of the tachycardia since returning the door builder.? The monitor was through his primary provider's office. He presented to ER following neurological symptoms.? He states around this afternoon not long before his presentation he started he had experienced his heart racing, similarly to the prior episodes, but this time what was new is he was experiencing vertigo, with everything spinning around him to one side horizontally.? He states that he had got up to put a log in the furnace, but felt persistent vertigo, so went to bed to lie down.? There he also experienced mild headache on the left side of his head.? Subsequently also experienced numbness in the left leg, also felt that left side of his face felt heavy, and to ER physician also reported some heaviness of the left arm.? He had previously had episodes of tachycardia/palpitation before, but never associated with strokelike symptoms. He denies any history of migraine or hemiplegic migraine. By the time he arrived in ER all the symptoms had resolved. CT of the head without acute abnormality. He is noted with resting bradycardia in the high 40s. Maintaining blood pressures.? Orthostatics negative. EKG with sinus bradycardia, first-degree AV block.? Baseline and 2-hour troponin normal. CBC, CMP unremarkable apart from elevation of NT proBNP at 466.? TSH normal.? UA unremarkable. Hospital course Patient was admitted for management evaluation of lightheadedness associated to his palpitation. During hospitalization he was bradycardic. Sinus bradycardia throughout his hospitalization, there was concern for 2-1 AV block however no evidence was found on telemetry or his repeated EKGs. He has sinus bradycardia, first-degree AV block. No QTC prolongation. Intermittent right bundle branch block. He remained hemodynamically stable. Cardiology Dr. Mcclain was consulted who recommended outpatient office follow-up. We are still waiting on report from his PCP regarding his recent Holter monitoring which she finished on Wednesday 02/07. Avoid AV bailey blocking agent. Magnesium to be repleted. No electrolyte imbalance. Patient is not excreting any chest pain, shortness of breath, confusion. He is hemodynamically stable at the time of discharge. Currently see cardiology note for further details. Physical Exam Narrative: GENERAL: In general he looks and feels well HEENT: Exam within normal limits. NECK: Supple without jugular vein distention. The carotid upstroke is normal without bruits. BACK: Exam normal. LUNGS: Clear. HEART: Regular rate and rhythm. ABDOMEN: Benign without organomegaly or tenderness. EXTREMITIES: No edema. NEUROLOGIC: Exam normal. SKIN: Unremarkable. Discharge Data Studies Completed and Pending Completed Studies During Hospitalization Category Date Time Status CT head wo con* [id number] Urgent Cat Scan 02/09/22 17:52 Completed XR chest 1V portable [id number] Urgent Exams 02/09/22 17:52 Completed Pending at discharge Category Date Time Status CV carotid duplex BI* [id number] Routine Ultrasound 02/10/22 01:49 Taken CV. echo complete* [id number] Routine Ultrasound 02/10/22 01:49 Taken Radiology Impressions Chest X-Ray 02/09/22 17:52 IMPRESSION: No acute cardiopulmonary abnormality. Head CT 02/09/22 17:52 IMPRESSION: No acute intracranial abnormality. Mild sinusitis. Laboratory Results WBC 9.8 10^3/uL (4.0-10.0) 02/11/22 04:02 RBC 5.10 10^6/uL (4.1-5.3) 02/11/22 04:02 Hgb 14.7 g/dL (11.7-16.6) 02/11/22 04:02 Hct 45.3 % (42.0-52.0) 02/11/22 04:02 MCV 88.8 fl (80-94) 02/11/22 04:02 MCH 28.8 pg (28.0-34.0) 02/11/22 04:02 MCHC 32.5 g/dL (30.0-36.0) 02/11/22 04:02 RDW 13.8 % (12.1-15.1) 02/11/22 04:02 Plt Count 189 10^3/cmm (130-400) 02/11/22 04:02 MPV 11.3 fL (7.4-10.4) H 02/11/22 04:02 Neut % (Auto) 63.6 % 02/11/22 04:02 Lymph % (Auto) 25.3 % 02/11/22 04:02 [place] % (Auto) 8.5 % 02/11/22 04:02 Eos % (Auto) 2.2 % 02/11/22 04:02 Baso % (Auto) 0.2 % 02/11/22 04:02 Neut # (Auto) 6.24 10^3/uL (1.8-7.7) 02/11/22 04:02 Lymph # (Auto) 2.5 10^3/uL (0.8-4.8) 02/11/22 04:02 [place] # (Auto) 0.8 10^3/uL (0.2-0.9) 02/11/22 04:02 Eos # (Auto) 0.2 10^3/uL (0.0-0.8) 02/11/22 04:02 Baso # (Auto) 0.0 10^3/uL (0.0-0.1) 02/11/22 04:02 Nucleated RBC % (auto) 0 % 02/11/22 04:02 Nucleated RBCs # 0.0 /100WBC 02/11/22 04:02 Sodium 135 mmol/L (136-145) L 02/11/22 04:02 Potassium 4.3 mmol/L (3.5-5.1) 02/11/22 04:02 Chloride 102 mmol/L (98-107) 02/11/22 04:02 Carbon Dioxide 25 mmol/L (22-29) 02/11/22 04:02 Anion Gap 12.3 (5-19) 02/11/22 04:02 BUN 21 mg/dL (8-23) 02/11/22 04:02 Creatinine 0.8 mg/dL (0.7-1.2) 02/11/22 04:02 GFR Calculation Not Reportable 02/11/22 04:02 Glucose 93 mg/dL (65-115) 02/11/22 04:02 Estimat Average Glucose 117 02/09/22 18:00 Hemoglobin A1c 5.7 % (4.0-6.0) 02/09/22 18:00 Calculated Osmolality 283 mOsm/kg (285-295) L 02/11/22 04:02 Calcium 9.2 mg/dL (8.5-10.5) 02/11/22 04:02 Magnesium 1.8 mg/dL (1.7-2.3) 02/09/22 18:00 Total Bilirubin 0.5 mg/dL (0.15-1.2) 02/09/22 18:00 AST 17 U/L (0-40) 02/09/22 18:00 ALT 11 U/L (0-41) 02/09/22 18:00 Alkaline Phosphatase 50 IU/L (40-130) 02/09/22 18:00 Troponin T Baseline 6 ng/L (0-15) 02/09/22 18:00 Troponin T 120 Minute 7.41 ng/L (0-15) 02/09/22 20:00 Delta Troponin T 1.41 ABS# (0-10) 02/09/22 20:00 Troponin T Hi Sens 6Hr 7.85 ng/L (0-15) 02/09/22 23:45 Troponin T Hi Sens 6Hr Delta 1.85 ng/L (0-12) 02/09/22 23:45 NT-Pro-B Natriuret Pep 466 pg/mL (0-125) H 02/09/22 18:00 Total Protein 7.5 g/dL (6.6-8.7) 02/09/22 18:00 Albumin 4.5 g/dL (3.5-5.2) 02/09/22 18:00 Globulin 3.0 g/dL (1.3-4.6) 02/09/22 18:00 Triglycerides 53 mg/dL (0-150) 02/09/22 20:00 Cholesterol 165 mg/dL (0-200) 02/09/22 20:00 LDL Cholesterol, Calc 108 mg/dL (50-129) 02/09/22 20:00 HDL Cholesterol 46 mg/dL (60-100) L 02/09/22 20:00 LDL/HDL Ratio 2.35 RATIO (0.00-3.22) 02/09/22 20:00 Cholesterol/HDL Ratio 3.59 mg/dL (1.0-5.00) 02/09/22 20:00 TSH 0.47 uIU/mL (0.27-4.20) 02/09/22 18:00 Urine Color Yellow (Yellow) 02/09/22 19:16 Urine Appearance Clear (CLEAR) 02/09/22 19:16 Urine pH 8 (5-7) H 02/09/22 19:16 Ur Specific [place] 1.010 (1.005-1.030) 02/09/22 19:16 Urine Protein Neg (Negative) 02/09/22 19:16 Urine Glucose (UA) Norm (Normal) 02/09/22 19:16 Urine Ketones Negative (Negative) 02/09/22 19:16 Urine Blood Neg (Negative) 02/09/22 19:16 Urine Nitrate Negative (Negative) 02/09/22 19:16 Urine Bilirubin Neg (Negative) 02/09/22 19:16 Prot Sulfosalicylic Acd Negative (Negative) 02/09/22 19:16 Urine Urobilinogen Neg mg/dL (Negative) 02/09/22 19:16 Ur Leukocyte Esterase Negative (Negative) 02/09/22 19:16 Vitals Last Vital Signs Temp 98.1 F 02/11/22 07:08 Pulse 58 L 02/11/22 07:08 Resp 18 02/11/22 07:08 BP 133/65 02/11/22 07:08 Pulse Ox 97 02/11/22 07:08 Discharge Plan Discharge Patient Disposition: Home Condition: Stable Prescriptions: New magnesium 200 mg tablet 200 mg PO DAILY Qty: 30 0RF Continued doxycycline hyclate 100 mg capsule 100 mg PO DAILY 0RF Medrol (Prince) 4 mg Tablets,Dose Pack 0 mg PO PER PKG DIR 0RF Mucinex 600 mg Tablet Extended Release 12hr 600 mg PO BID 0RF Multi For Him (no iron) 400-40 mcg Capsule 1 cap PO DAILY 0RF Discharge Orders: Discharge Order (Routine); Ordered 02/11/22 Ordered By: Gayathri Mccloud Referrals: Daryn Mcclain MD [Physician] - 4-7 days (Please call [facility] [place] and schedule an appointment to see Dr. Mcclain within the next 7 days. ) Yesi Altamirano APN [Primary Care Provider] - (Please call Yesi Altamirano's [facility] on Sunday and schedule an appointment to be seen within the next 10 days. ) Discharge Diet: Cardiac Discharge Activity: Limit activity as instructed Patient Instructions: Magnesium Oxide (By mouth), Vertigo (DC), Opioid Safety Discharge Attestations Time Spent in Discharge Care*: less than 30 min Quality Metrics Clinical Quality Measures [ No reported AMI, CVA or VTE this stay] Coding Level of Care Code Acute Chg FW DC note Diagnoses Vertigo R42 Dizziness R42 HTN (hypertension) I10 Bradycardia R00.1
[2022-02-11 11:28] VITALS: BP 124/70; PULSE 56; RESP 18; TEMP 36.8; O2SAT 96
[2022-02-11 11:41] VITALS: BP 124/70; PULSE 56; RESP 18; TEMP 36.8; O2SAT 96
--- NOTE | 2022-02-11 11:45 | PC.NURSE ---
IV reviewed intact at this time. Patient tolerated well. Reviewed patient's discharge with patient at this time. Patient verbalized understanding of the need to make follow up appointments and to start taking Magnesium. Patient is A&Ox3. Respirations even and non-labored on room air. Patient wheel chaired to private car.
== END 2022-02-11 11:35 | disposition home or self-care (01) | DRG 310 ==
LOC: ER 20:34 → MEDSURG 21:39
PROVIDERS: Admitting Provider Internal Medicine; Emergency Provider Emergency Medicine; PCP Nurse Practitioner; Visit Provider Internal Medicine
DX: R00.1 Bradycardia, unspecified (principal); I10 Essential (primary) hypertension; R51.9 Headache, unspecified; J40 Bronchitis, not specified as acute or chronic; R42 Dizziness and giddiness
CPT/HCPCS: 36415; 70450; 71045; 80048; 80053; 80061; 81003; 83036; 83735; 83880; 84443; 84484; 85025; 93005; 93306; 93880; 99285; G0378

== ENCOUNTER → 2022-02-17 10:29 | Outpatient (BNVA) | payer MEDICARE, OTHER, SELFPAY | PROVIDERS: PCP Nurse Practitioner; Visit Provider Internal Medicine Cardiovascular Disease | DX: Z09 Encounter for follow-up examination after completed treatment for conditions other than malignant neoplasm (principal); R42 Dizziness and giddiness; R00.1 Bradycardia, unspecified | CPT/HCPCS: 99212; 99213 ==

== ENCOUNTER 2022-08-05 11:43 | Emergency (ER) | payer MEDICARE, OTHER, SELFPAY ==
[2022-08-05] VITALS (33 sets, daily range): BP systolic 100–123; BP diastolic 58–82; PULSE 66–103; RESP 10–22; TEMP 36.4; O2SAT 82–99; BMI 23.7
--- NOTE | 2022-08-05 12:06 | W.ED.NAVMDI ---
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 Transient ischemic attack Surgical History H/O shoulder surgery History of hernia surgery Family History Other No pertinent family history Social History Smoking and tobacco status: never smoked Alcohol intake: current Alcohol intake frequency: holidays/special occasions only Lives independently: Yes Household members: none Marital status: / Course Vital Signs: Vital signs: Vital Signs Temperature 97.5 F L 08/05/22 11:48 Pulse Rate 103 H 08/05/22 11:48 Respiratory Rate 22 H 08/05/22 11:48 Blood Pressure 100/63 08/05/22 11:48 Pulse Oximetry 98 08/05/22 11:48 Oxygen Delivery Me thod 08/05/22 11:48 Discharge Plan Discharge Condition: Stable Prescriptions: No Action rivaroxaban 20 mg tablet 20 mg PO DAILY Qty: 90 1RF Rx Instructions: must administer with evening meal Mucinex 600 mg Tablet Extended Release 12hr 600 mg PO BID Multi For Him (no iron) 400-40 mcg Capsule 1 cap PO DAILY magnesium 200 mg tablet 200 mg PO DAILY Qty: 30 0RF Referrals: Manuela Lewis NP [Primary Care Provider] - Coding Level of Care Code ED Historical Site Guide for Jennifer Chandler
--- NOTE | 2022-08-05 12:26 | XRR_ITS ---
PROCEDURE INFORMATION: Exam: XR Chest Exam date and time: 08/05/2022 12:43 PM Age: 72 years old Clinical indication: Cough and dyspnea and fever; Patient HX: Sinus congestion for 3-4 days. Nausea/vomiting; Fever, chills, fatigue, body aches headaches; Additional info: Dyspnea/cough TECHNIQUE: Imaging protocol: Radiologic exam of the chest. Views: 1 view. COMPARISON: CR XR chest 1V portable [id number] 02/09/2022 6:07 PM FINDINGS: Lungs: Unremarkable. No consolidation. Pleural spaces: Unremarkable. No pleural effusion. No pneumothorax. Heart/Mediastinum: Unremarkable. No cardiomegaly. Bones/joints: Right shoulder prosthesis projects in satisfactory position. There are multiple old healed left rib fractures. No acute bony abnormality. XR/XR chest 1V portable [id number] IMPRESSION: No acute abnormality.
--- NOTE | 2022-08-05 12:27 | ED_ITS ---
HPI - COVID General: Chief Complaint: Nausea/Vomiting/Diarrhea Stated Complaint: Sick to stomach, weakness, back pain Time Seen by Provider: 08/05/22 12:01 Source: patient Mode of arrival: ambulatory Limitations: no limitations Triage information: Has fever, cough or shortness of breath . History of Present Illness: 72-year-old male presents emergency room with sinus congestion headache myalgias for the last 3 to 4 days. He has had nausea and vomiting with it as well frequent stools no hematochezia melena hematemesis or coffee-ground emesis he has had a slight cough. No anosmia. Not previously had COVID he has been vaccinated. No dysuria urgency or frequency. MD complaint: has COVID symptoms Prior covid testing: no COVID 19 common symptoms: positive fever(s), chills, cough, non-productive cough, dyspnea, fatigue, body aches, headache(s), throat pain, nasal congestion, nausea, vomiting and diarrhea COVID 19 other sytmptoms: negative chest pain or requiring oxygen Onset (ago): day(s) (3) Severity: mild Treatment prior to arrival: none COVID Results: SARS-CoV-2 (PCR) Pending 08/05/22 13:01 Coronavirus Type 229E (PCR) Pending 08/05/22 13:01 Review of Systems Const: Reports: fever(s), chills, body aches and fatigue ENMT: Reports: throat pain and nasal congestion Card: Denies: chest pain, palpitations, irregular heart rhythm, edema, dyspnea on exertion or orthopnea Resp: Reports: dyspnea and non-productive cough GI: Reports: abdominal pain, nausea, vomiting, diarrhea and GI cramping; Denies: bloating or hematochezia : Denies: flank pain, dysuria, urinary frequency or urinary urgency Skin/Breast: Denies: rash or pruritus Neuro: Reports: headache(s) PFSH ED PFSH: Medical History Arrhythmia Bradycardia Dizziness Headache HTN (hypertension) Influenza Paroxysmal tachycardia 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 Transient ischemic attack Surgical History H/O shoulder surgery History of hernia surgery Family History Other No pertinent family history Social History Smoking and tobacco status: never smoked Alcohol intake: current Alcohol intake frequency: holidays/special occasions only Lives independently: Yes Household members: none Marital status: / Physical Exam Const: GENERAL APPEARANCE: cooperative and comfortable ORIENTATION/CONSCIOUSNESS: Yes awake, Yes oriented to person, Yes oriented to place and Yes oriented to time HENMT: COMMON NORMALS: normocephalic, atraumatic, hearing grossly normal bilaterally, external ears normal, EAC's normal, TM's normal bilaterally, Normal nasal mucous membranes and turbinates present, moist oral mucous membranes and oropharynx normal HEAD & SCALP: normocephalic and atraumatic NOSE: Normal nasal mucous membranes and turbinates present EXTERNAL EAR: Yes external ears normal EXTERNAL AUDITORY CANAL: EAC's normal TYMPANIC MEMBRANE: TM's normal bilaterally Eye: COMMON NORMALS: Equal, round and reactive pupils present, EOMs intact bilaterally, conjunctivae normal and no scleral icterus CONJUNCTIVA: Yes conjunctivae normal PUPIL: Yes Equal, round and reactive pupils present Neck/C-Spine: COMMON NORMALS: full ROM, no lymphadenopathy, supple and no JVD Lymph: LYMPHATIC: no lymphadenopathy noted and no lymphedema noted Resp: COMMON NORMALS: normal respiratory effort, No retractions, No use of accessory muscles and clear to auscultation bilaterally AUSCULTATION: clear to auscultation bilaterally Cardio: COMMON NORMALS: no JVD, regular rate, regular rhythm and No murmurs present (Cardio) RATE: regular rate RHYTHM: regular rhythm GI: COMMON NORMALS: Soft to palpation and No hepatosplenomegaly present AUSCULTATION: Yes normoactive bowel sounds PALPATION: Yes Soft to palpation, No Tenderness to palpation present (GI), No Guarding due to palpation present (GI) and Yes No hepatosplenomegaly present Extremity: COMMON NORMALS: normal to inspection, capillary refill normal, no clubbing, cyanosis or edema, no calf tenderness and no pedal edema Neuro: SENSORIUM/ORIENTATION: Yes oriented to person, Yes oriented to place and Yes oriented to time Skin: COMMON NORMALS: no rashes or lesions noted GENERAL SKIN EXAM: no rashes or lesions noted Course Vital Signs: Vital signs: Vital Signs Temperature 97.5 F L 08/05/22 11:48 Pulse Rate 103 H 08/05/22 11:48 Respiratory Rate 22 H 08/05/22 11:48 Blood Pressure 100/63 08/05/22 11:48 Pulse Oximetry 98 08/05/22 11:48 Oxygen Delivery Me thod 08/05/22 11:48 MDM - COVID Medical Decision Making Labs and imaging reviewed. Based on symptoms suspect COVID. COVID swab pending discharge home supportive cares antiemetics clear liquid diet will contact when results are available. Advised self quarantine until results are available. Medical Records I reviewed the patient's medical records. Lab Data I reviewed the patient's lab results. : 08/05/22 12:32 08/05/22 12:32 Laboratory Results WBC 7.6 10^3/uL (4.0-10.0) 08/05/22 12:32 RBC 5.87 10^6/uL (4.1-5.3) H 08/05/22 12:32 Hgb 17.4 g/dL (11.7-16.6) H 08/05/22 12:32 Hct 50.2 % (42.0-52.0) 08/05/22 12:32 MCV 85.5 fl (80-94) 08/05/22 12:32 MCH 29.6 pg (28.0-34.0) 08/05/22 12:32 MCHC 34.7 g/dL (30.0-36.0) 08/05/22 12:32 RDW 12.8 % (12.1-15.1) 08/05/22 12:32 Plt Count 238 10^3/cmm (130-400) 08/05/22 12:32 MPV 10.5 fL (7.4-10.4) H 08/05/22 12:32 Lymph % (Auto) Not Reportable 08/05/22 12:32 [place] % (Auto) Not Reportable 08/05/22 12:32 Lymph # (Auto) Not Reportable 08/05/22 12:32 [place] # (Auto) Not Reportable 08/05/22 12:32 Total Counted 100 (0-100) 08/05/22 12:32 Atypical Lymphs % 4.0 % (0-5) 08/05/22 12:32 Absolute Neutrophils 4.9 10^3/cmm (1.4-6.5) 08/05/22 12:32 Segmented Neutrophils 64 % 08/05/22 12:32 Abs Segm Neuts (Man) 4.9 10/cmm (1.6-7.1) 08/05/22 12:32 Band Neutrophils 0.0 % 08/05/22 12:32 Abs Band Neuts (Man) 0.0 10^3/cmm (0.0-1.2) 08/05/22 12:32 Absolute Lymphocytes 1.7 10^3/cmm (1.2-3.4) 08/05/22 12:32 Lymphocytes (Manual) 18 % 08/05/22 12:32 Monocytes (Manual) 14.0 % 08/05/22 12:32 Absolute Monocytes 1.1 10^3/cmm (0.1-0.6) H 08/05/22 12:32 Eosinophils (Manual) 0 % 08/05/22 12:32 Absolute Eosinophils 0.0 10^3/cmm (0.0-0.7) 08/05/22 12:32 Basophils (Manual) 0.0 % 08/05/22 12:32 Absolute Basophils 0.0 10^3/cmm (0.0-0.2) 08/05/22 12:32 Platelet Estimate Normal (Normal) 08/05/22 12:32 Sodium 137 mmol/L (136-145) 08/05/22 12:32 Potassium 3.2 mmol/L (3.5-5.1) L 08/05/22 12:32 Chloride 102 mmol/L (98-107) 08/05/22 12:32 Carbon Dioxide 22 mmol/L (22-29) 08/05/22 12:32 Anion Gap 16.2 (5-19) 08/05/22 12:32 BUN 24 mg/dL (8-23) H 08/05/22 12:32 Creatinine 1.2 mg/dL (0.7-1.2) 08/05/22 12:32 GFR Calculation Not Reportable 08/05/22 12:32 Glucose 135 mg/dL (65-115) H 08/05/22 12:32 Calculated Osmolality 290 mOsm/kg (285-295) 08/05/22 12:32 Lactic Acid 2.0 mmol/L (0.5-2.2) 08/05/22 12:32 Calcium 9.4 mg/dL (8.5-10.5) 08/05/22 12:32 Total Bilirubin 0.4 mg/dL (0.15-1.2) 08/05/22 12:32 AST 17 U/L (0-40) 08/05/22 12:32 ALT 9 U/L (0-41) 08/05/22 12:32 Alkaline Phosphatase 65 U/L (40-130) 08/05/22 12:32 Total Protein 8.1 g/dL (6.6-8.7) 08/05/22 12: Albumin 4.0 g/dL (3.5-5.2) 08/05/22 12: Globulin 4.1 g/dL (1.3-4.6) 08/05/22 12:32 Lipase 19 U/L (13-60) 08/05/22 12:32 Urine Color Yellow (Yellow) 08/05/22 14:15 Urine Appearance Clear (CLEAR) 08/05/22 14:15 Urine pH 6 (5-7) 08/05/22 14:15 Ur Specific [place] 1.020 (1.005-1.030) 08/05/22 14:15 Urine Protein Trace (Negative) 08/05/22 14:15 Urine Glucose (UA) Norm (Normal) 08/05/22 14:15 Urine Ketones 1+ (Negative) H 08/05/22 14:15 Urine Blood Neg (Negative) 08/05/22 14:15 Urine Nitrate Negative (Negative) 08/05/22 14:15 Urine Bilirubin 1+ (Negative) H 08/05/22 14:15 Urine Urobilinogen Neg mg/dL (Negative) 08/05/22 14:15 Ur Leukocyte Esterase Negative (Negative) 08/05/22 14:15 Urine RBC None /hpf (0-2) 08/05/22 14:15 Urine WBC None /hpf (0-5) 08/05/22 14:15 Ur Squamous Epith Cells None /hpf (0-5) 08/05/22 14:15 Amorphous Sediment Not Reportable 08/05/22 14:15 Urine Bacteria None /hpf (NONE) 08/05/22 14:15 SARS-CoV-2 (PCR) Pending 08/05/22 13:01 Coronavirus Type 229E (PCR) Pending 08/05/22 13:01 Discharge Plan Discharge Patient Disposition: Home Clinical Impression: Suspected 2019-nCoV infection Condition: Stable Prescriptions: New promethazine 25 mg tablet 25 mg PO Q6H PRN (Reason: nausea and vomiting) Qty: 20 0RF No Action rivaroxaban 20 mg tablet 20 mg PO DAILY Qty: 90 1RF Rx Instructions: must administer with evening meal Mucinex 600 mg Tablet Extended Release 12hr 600 mg PO BID Multi For Him (no iron) 400-40 mcg Capsule 1 cap PO DAILY magnesium 200 mg tablet 200 mg PO DAILY Qty: 30 0RF Discharge Orders: Discharge ED (Routine); Ordered 08/05/22 Ordered By: Allan Colvin Referrals: Manuela Lewis, [employer] [Primary Care Provider] - Discharge Diet: Clear Liquid Discharge Activity: Increase activity as tolerated Patient Instructions: Opioid Safety, Pain Management Activity Restrictions/Additional Instructions: Clear liquid diet for 24 to 48 hours and advance as tolerated. Return to the emergency room if you have worsening trouble breathing. We will contact you when the COVID results are returned. Maintain self quarantine until that time. 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
[2022-08-05 12:47] LABS: Hematocrit 50.2 % (42.0-52.0); Hemoglobin 17.4 g/dL (11.7-16.6); Mean Corpuscular HGB Conc 34.7 g/dL (30.0-36.0); Mean Corpuscular Hemoglobin 29.6 pg (28.0-34.0); Mean Corpuscular Volume 85.5 fl (80-94); Mean Platelet Volume 10.5 fL (7.4-10.4); Platelet Count 238 10^3/cmm (130-400); Red Blood Count 5.87 10^6/uL (4.1-5.3); Red Cell Distribution Width 12.8 % (12.1-15.1); White Blood Count 7.6 10^3/uL (4.0-10.0)
[2022-08-05] MEDS: lactated ringers 1,000 ML 999 ML IV (12:57)
[2022-08-05] MEDS: ondansetron 2 mg/ML SDV 2 mL 4 MG IVP (12:57)
[2022-08-05 13:05] LABS: Alanine Aminotransferase 9 U/L (0-41); Alkaline Phosphatase 65 U/L (40-130); Anion Gap 16.2 (5-19); Aspartate Amino Transferase 17 U/L (0-40); Blood Urea Nitrogen 24 mg/dL (8-23); Calcium 9.4 mg/dL (8.5-10.5); Carbon Dioxide 22 mmol/L (22-29); Chloride 102 mmol/L (98-107); Creatinine Clr Calc Pharmacy 59.8214; Globulin 4.1 g/dL (1.3-4.6); Glucose 135 mg/dL (65-115); Lipase 19 U/L (13-60); Osmolality Calculated 290 mOsm/kg (285-295); Potassium 3.2 mmol/L (3.5-5.1); Sodium 137 mmol/L (136-145); Total Bilirubin 0.4 mg/dL (0.15-1.2); Total Protein 8.1 g/dL (6.6-8.7)
[2022-08-05 13:24] LABS: Absolute Segmented Neutrophil 4.9 10/cmm (1.6-7.1); Lymphocytes 18 %; Segmented Neutrophils 64 %; Total Cells Counted 100 (0-100)
[2022-08-05 13:25] LABS: Absolute Neutrophil 4.9 10^3/cmm (1.4-6.5); Eosinophils 0 %; Lymphocytes Absolute 1.7 10^3/cmm (1.2-3.4); Monocytes Absolute 1.1 10^3/cmm (0.1-0.6); Platelet Estimate Normal (Normal)
[2022-08-05 14:22] LABS: Bilirubin Urine 1+ (Negative); Glucose Urine UA Norm (Normal); Ketones Urine 1+ (Negative); Protein Urine Trace (Negative); Urine Appearance Clear (CLEAR); Urine Color Yellow (Yellow); pH Urine 6 (5-7)
[2022-08-05 14:23] LABS: Add Urine Microscopic? YES; Blood Urine Neg (Negative); Leukocyte Esterase Urine Negative (Negative); Nitrate Urine Negative (Negative); Urobilinogen Urine Neg (Negative)
[2022-08-05 14:31] LABS: Add Urine Culture? No
[2022-08-05 14:57] LABS: Adenovirus Not Detected (NOT DETECT); Chlamydia Pneumoniae Not Detected (NOT DETECT); Coronavirus 229E,HKU1,NL63,OC4 Not Detected (NOT DETECT); Human Metapneumovirus Not Detected (NOT DETECT); Human Rhinovirus/Enterovirus Detected (NOT DETECT); Influenza A Not Detected (NOT DETECT); Influenza A H1 Not Detected (NOT DETECT); Influenza A H1-2009 Not Detected (NOT DETECT); Influenza A H3 Not Detected (NOT DETECT); Influenza B Not Detected (NOT DETECT); Mycoplasma Pneumoniae Not Detected (NOT DETECT); Parainfluenza Virus Type 1 Not Detected (NOT DETECT); Parainfluenza Virus Type 2 Not Detected (NOT DETECT); Parainfluenza Virus Type 3 Not Detected (NOT DETECT); Parainfluenza Virus Type 4 Not Detected (NOT DETECT); Respiratory Syncytial Virus A Not Detected (NOT DETECT); Respiratory Syncytial Virus B Not Detected (NOT DETECT); SARS-COV-2 Not Detected (NOT DETECT)
[2022-08-05 14:59] LABS: Human Metapneumovirus Not Detected (NOT DETECT); Human Rhinovirus/Enterovirus Detected (NOT DETECT); Results from Genmark
== END 2022-08-05 15:38 | disposition home or self-care (01) ==
PROVIDERS: Emergency Provider Family Medicine; PCP Nurse Practitioner Family
DX: B34.1 Enterovirus infection, unspecified (principal); I10 Essential (primary) hypertension; Z86.73 Personal history of transient ischemic attack (TIA), and cerebral infarction without residual deficits
CPT/HCPCS: 36415; 71045; 80053; 81001; 83605; 83690; 85007; 85025; 87040; 87635; 87801; 96361; 96374; 99285; J2405

== ENCOUNTER → 2023-04-26 12:49 | Outpatient (BNVA) | payer MEDICARE, OTHER, SELFPAY | PROVIDERS: PCP Nurse Practitioner Family; Visit Provider Internal Medicine Cardiovascular Disease | DX: R42 Dizziness and giddiness (principal); I48.91 Unspecified atrial fibrillation; Z79.01 Long term (current) use of anticoagulants | CPT/HCPCS: 99213 ==

== ENCOUNTER → 2024-04-17 10:38 | Outpatient (BNVA) | payer MEDICARE, OTHER, SELFPAY | PROVIDERS: PCP Nurse Practitioner Family; Visit Provider Internal Medicine Cardiovascular Disease | DX: I48.91 Unspecified atrial fibrillation (principal); Z79.01 Long term (current) use of anticoagulants | CPT/HCPCS: 99213 ==

== ENCOUNTER 2025-05-14 09:19 | Outpatient (CLI) | payer MEDICARE, OTHER, SELFPAY ==
--- NOTE | 2025-05-14 09:32 | XR_ITS ---
WS: [id number] XR lumbar spine min 4V [id number] REASON FOR EXAM: LOW PAIN WITH SCIATICA FINDINGS: Mild rotatory levoscoliosis. No significant vertebral body compression deformity or focal lesion. Disc spaces are intact and relatively well preserved. Minimal vertebral body osteophytosis L2-L5. No spondylolysis. No spondylolisthesis. XR/XR lumbar spine min 4V [id number] IMPRESSION: Mild degenerative spondylosis as above.
== END 2025-05-14 09:20 | disposition home or self-care (01) ==
PROVIDERS: PCP Nurse Practitioner Family; Visit Provider Nurse Practitioner Family
DX: M54.40 Lumbago with sciatica, unspecified side (principal); M41.86 Other forms of scoliosis, lumbar region
CPT/HCPCS: 72110

== ENCOUNTER → 2025-05-29 08:36 | Outpatient (BNVA) | payer MEDICARE, OTHER, SELFPAY | PROVIDERS: PCP Nurse Practitioner Family; Visit Provider Internal Medicine Cardiovascular Disease | DX: I48.91 Unspecified atrial fibrillation (principal); I10 Essential (primary) hypertension; Z79.01 Long term (current) use of anticoagulants | CPT/HCPCS: 99214 ==

== ENCOUNTER 2025-06-05 08:37 | Outpatient (CLI) | payer MEDICARE, SELFPAY ==
--- NOTE | 2025-06-05 09:04 | XR_ITS ---
WS: [id number] Right hip, 2 views, AP pelvis, 06/05/2025 Clinical Data: Lumbago with sciatica(M54.40) Comparison: Left hip, 05/24/2017 Findings: No fractures or dislocations are seen. The right hip shows no erosion, sclerosis, narrowing, cyst formation or fragmentation of the right femoral head. There is a right acetabular lip. The left hip is normal. There are clips in the scrotum from a vasectomy. The soft tissues are not remarkable. The adjacent pelvis is normal. XR/XR hip RT 2-3V wo/w pel* [id number] Impression: Minimal osteoarthritis of the right hip.
== END 2025-06-05 08:38 | disposition home or self-care (01) ==
PROVIDERS: PCP Nurse Practitioner Family; Visit Provider Nurse Practitioner Family
DX: M54.41 Lumbago with sciatica, right side (principal); Z97.8 Presence of other specified devices; R93.89 Abnormal findings on diagnostic imaging of other specified body structures
CPT/HCPCS: 73502